=== PATIENT | male | born 1950 | race Hispanic/Latino ===

== ENCOUNTER 2023-08-13 07:11 | Day surgery (SDC) | payer OTHER ==
[2023-08-08 09:13] LABS: BASOPHILS # (AUTO) 0.04 K/uL (0.00-0.20); BASOPHILS % (AUTO) 0.7 % (0.0-5.0); EOSINOPHILS % (AUTO) 3.6 % (0.0-8.0); HEMATOCRIT 41.9 % (42-54); IMMATURE GRANULOCYTE ABSOLUTE 0.02 K/uL (0-1); LYMPHOCYTES % (AUTO) 35.6 % (21.0-51.0); MEAN CORPUSCULAR HEMOGLOBIN 29.3 pg (27.0-33.0); MEAN CORPUSCULAR HGB CONC 32.7 g/dL (32.0-36.0); MEAN CORPUSCULAR VOLUME 89.5 fL (79-99); MONOCYTES # (AUTO) 0.4 K/uL (0.1-1.0); MONOCYTES % (AUTO) 7.2 % (3.0-13.0); NEUTROPHILS # (AUTO) 2.9 K/uL (1.8-7.7); NEUTROPHILS % (AUTO) 52.5 % (40.0-77.0); PLATELET COUNT (AUTO) 198 K/uL (130-400); RED BLOOD CELL COUNT(AUTO) 4.68 MIL/uL (4.50-6.20); RED CELL DISTRIBUTION WIDTH 12.8 % (11.0-15.5); WHITE BLOOD COUNT (AUTO) 5.5 K/uL (4.8-10.8)
[2023-08-08 09:20] LABS: CREATININE 0.9 mg/dL (0.5-1.5)
[2023-08-08 09:27] VITALS: BP 136/74; PULSE 64; RESP 14
[2023-08-08 09:30] LABS: INR 0.98 (0.85-1.15); PROTHROMBIN TIME 11.4 SEC (9.6-11.6)
[2023-08-08 09:30] LABS: APPEARANCE,URINE CLEAR (CLEAR); BILIRUBIN,URINE NEGATIVE (NEGATIVE); COLOR,URINE LIGHT-YELLOW (YELLOW); GLUCOSE, URINE (UA) NEGATIVE (NEGATIVE); KETONES,URINE NEGATIVE (NEGATIVE); LEUKOCYTE ESTERASE ,URINE NEGATIVE Leu/uL (NEGATIVE); NITRATE,URINE NEGATIVE (NEGATIVE); OCCULT BLOOD,URINE NEGATIVE (NEGATIVE); PROTEIN,URINE NEGATIVE (NEGATIVE); UROBILINOGEN,URINE 0.2 mg/dL (0.2-1.0)
[2023-08-08 09:32] LABS: PARTIAL THROMBOPLASTIN TIME 27.9 SEC (26.3-35.5)
[2023-08-08 09:37] LABS: ADD UA MICROSCOPIC NO
[~2023-08-13] VITALS: Ht 162.6 cm; Wt 82.6 kg
[2023-08-13] VITALS (18 sets, daily range): BP systolic 130–155; BP diastolic 54–77; PULSE 59–84; RESP 12–17
[~2023-08-13 07:11] MED LIST: AEC81 PO; ATOR40TA71 PO; BACL5TAB PO; LOSA100T59 PO; METF-445 PO
[2023-08-13] MEDS ORDERED: CEFAZOLIN SODIUM 2 GM VIAL ONE (07:48)
[2023-08-13] MEDS ORDERED: 0.9%NACL 1000ML 1,000 ML IV ONE (07:48)
[2023-08-13] MEDS ORDERED: GABA-529 PO (07:58)
[2023-08-13] MEDS ORDERED: BUPIVACAINE/PF 0.5% 30ML VIAL ONE (08:45)
[2023-08-13] MEDS ORDERED: FENTANYL CITRATE PF 50 MCG/1 ML 2ML VIAL ONE (09:40)
[2023-08-13] MEDS ORDERED: LIDOCAINE PF 100MG/5ML (2%) SYRINGE 5ML ONE (09:40)
[2023-08-13] MEDS ORDERED: PROPOFOL 10 MG/ML 20ML VIAL IV ONE (09:40)
[2023-08-13] MEDS ORDERED: MIDAZOLAM HCL 1 MG/ML 2ML VIAL ONE (09:40)
[2023-08-13] MEDS ORDERED: ROCURONIUM 10MG/1ML SYR 10 MG/ML ML ONE ×2 (09:40→11:02)
[2023-08-13] MEDS ORDERED: ROPIVACAINE 0.5% 5MG/ML 30ML IJ ONE (09:43)
[2023-08-13] MEDS ORDERED: INDOCYANINE GREEN 25 MG VIAL IJ ONE (09:55)
[2023-08-13] MEDS ORDERED: CEFAZOLIN SODIUM 2 GM VIAL IVPB ONE (10:15)
[2023-08-13] MEDS ORDERED: BUPIVACAINE/PF 0.5% 30ML VIAL INJ ONE (10:28)
[2023-08-13] MEDS ORDERED: DEXAMETHASONE SOD PHOSPHATE 4 MG/ML 1ML VIAL ONE (10:37)
[2023-08-13] MEDS ORDERED: ONDANSETRON 4MG INJ ONE (10:38)
[2023-08-13] MEDS ORDERED: GLYCOPYRROLATE 1 MG/5 ML SYRINGE ONE (11:17)
[2023-08-13] MEDS ORDERED: NEOSTIGMINE 5MG/5ML SYR IV ONE (11:17)
[2023-08-13] MEDS ORDERED: KETOROLAC 30MG VIAL (30MG/ML) ONE (11:31)
[2023-08-13] MEDS ORDERED: MEPERIDINE-PF 25 MG/ML SYG ONE ×2 (11:53→12:04)
== END 2023-08-13 13:20 | disposition home or self-care (01) ==
LOC: DAH 07:11
PROVIDERS: ATTEND Student in an Organized Health Care Education/Training Program
DX: K80.10 Calculus of gallbladder with chronic cholecystitis without obstruction (principal); K85.90 Acute pancreatitis without necrosis or infection, unspecified; I10 Essential (primary) hypertension; E78.2 Mixed hyperlipidemia; E66.9 Obesity, unspecified; E11.9 Type 2 diabetes mellitus without complications; Z79.01 Long term (current) use of anticoagulants; Z79.899 Other long term (current) drug therapy; Z98.890 Other specified postprocedural states; Z98.49 Cataract extraction status, unspecified eye; Z79.82 Long term (current) use of aspirin; Z79.84 Long term (current) use of oral hypoglycemic drugs; Z68.32 Body mass index [BMI] 32.0-32.9, adult
CPT/HCPCS: 80048; 85025; 85610; 85730; 81003; 36415; 93005; 47562; 82948 ×2; 88304; A6260; J1100; A4663; J7030 ×2; J3010; J3490 ×3; J2710; J2001; J2250; J2704; J2405; J1885; J2175 ×2; J2795; J0690 ×2; C1769; A4649; A4215; A4223; A4222; A4221; A4600; G0168